=== PATIENT | female | born 1985 | race Caucasian/White ===

== ENCOUNTER 2017-02-21 07:46 | Emergency (ER) | payer OTHER ==
[2017-02-21 07:52] VITALS: BP 126/76
--- NOTE | 2017-02-21 08:47 | UC ---
Complaint Female HPI - HPI Summary HPI Summary: TWO DAYS OF MILD INTERMITTENT LEFT SIDED FLANK PAIN, SOMETIMES RADIATES TO LEFT ABDOMEN. OCCASIONAL MILD DISCOMFORT WITH URINATION. NO RASHES. NO NAUSEA NO VOMITING. NO TRAUMA. NO HX OF KIDNEY STONES. HAS BEEN ON DOXYCYCLINE FOR LYME DZ. - History Of Current Complaint Chief Complaint: UCGeneralIllness Stated Complaint: PAIN ON SIDE Time Seen by Provider: 02/21/17 08:04 Hx Obtained From: Patient, Family/Welt Rougher Hx Last Menstrual Period: 01/21/17 Onset/Duration: Gradual Onset, Lasting Days, Still Present Timing: Intermittent, Lasting Days Severity Initially: Mild Severity Currently: Mild Character: Dull Aggravating Factor(s): Nothing Associated Signs And Symptoms: Positive: Back Pain. Negative: Nausea, Vomiting( # Of Episodes =) - Risk Factors Ectopic Risk Factor: Negative Ovarian Torsion Risk Factor: Negative - Allergies/Home Medications Allergies/Adverse Reactions: Allergies Allergy/AdvReac Type Severity Reaction Status Date / Time No Known Allergies Allergy Verified 02/01/17 07:16 PMH/Surg Hx/FS Hx/Imm Hx Previously Healthy: Yes - Surgical History Surgical History: Yes Surgery Procedure, Year, and Place: LEFT KNEE ARTHROSCOPY 04/04, DERMOID CYST REMOVED FROM RIGHT OVARY 02/07, R retina repair 2014 - Family History Known Family History: Positive: Other - NONCONTIBUTORY Negative: Cardiac Disease, Hypertension, Diabetes, Renal Disease - Social History Occupation: Employed Full-time Lives: With Family Alcohol Use: Occasionally Substance Use Type: None Smoking Status (MU): Never Smoked Tobacco - Immunization History Most Recent Tetanus Shot: 01/31/2013 Review of Systems Constitutional: Negative Skin: Negative Eyes: Negative ENT: Negative Respiratory: Negative Cardiovascular: Negative Gastrointestinal: Negative Genitourinary: Dysuria, Urgency Motor: Negative Neurovascular: Negative Musculoskeletal: Myalgia Neurological: Negative Psychological: Negative All Other Systems Reviewed And Are Negative: Yes Physical Exam Triage Information Reviewed: Yes Appearance: Well-Appearing, No Pain Distress, Well-Nourished Vital Signs: Initial Vital Signs Temp 100 F 02/21/17 07:47 Pulse 84 02/21/17 07:47 Resp 17 02/21/17 07:47 BP 126/76 02/21/17 07:47 Pulse Ox 100 02/21/17 07:47 Vital Signs Reviewed: Yes Eye Exam: Normal ENT Exam: Normal ENT: Positive: Normal ENT inspection, TMs normal Dental Exam: Normal Neck exam: Normal Neck: Positive: Supple, Nontender, No Lymphadenopathy Respiratory Exam: Normal Respiratory: Positive: Chest non-tender, Lungs clear, Normal breath sounds, No respiratory distress, No accessory muscle use Cardiovascular Exam: Normal Cardiovascular: Positive: RRR, No Murmur, Pulses Normal Abdominal Exam: Normal Abdomen Description: Positive: Nontender - NO TENDERNESS TO ABDOMINAL PALPATION , No Organomegaly, Soft, CVA Tenderness (R) - MILD, CVA Tenderness (L) - MILD Bowel Sounds: Positive: Present Musculoskeletal Exam: Normal Neurological Exam: Normal Psychological Exam: Normal Skin Exam: Normal Complaint Female Dx - Course Course Of Treatment: CURRENTLY SYMPTOMS ARE MILD; PATIENT AGREED TO SEEK EVALUATION AT EMERGENCY DEPARTMENT (FOR CT SCAN) IF SYMPTOMS WORSEN, OR IF NEW SYMPTOMS DEVELOP. - Differential Dx/Diagnosis Differential Diagnosis/HQI/PQRI: Renal Colic, Ureteral Stone, Urinary Tract Infection Provider Diagnoses: Renal colic Discharge - Discharge Plan Condition: Stable Disposition: HOME Patient Education Materials: Flank Pain (ED) Referrals: Shayy HILL,Zulma Valenzuela [Primary Care Provider] -
== END 2017-02-21 08:50 | disposition home or self-care (01) ==
LOC: UCEAST 07:46
DX: N23 Unspecified renal colic (principal)
CPT/HCPCS: 81003; 84702; 99211; G0463